=== PATIENT | female | born 1970 | race Caucasian/White ===

== ENCOUNTER 2020-11-18 11:40 | Day surgery (SDC) | payer BC ==
[2020-11-15 13:23] VITALS: BMI 30.6
[2020-11-18] MEDS ORDERED: PROPOFOL 20 ML ONE ×2 (13:01)
[2020-11-18] MEDS ORDERED: LIDOCAINE HCL/PF 2% SDV 5ML VIAL ONE (13:01)
[2020-11-18 15:50] VITALS: BP 128/71; PULSE 72; TEMP 98
== END 2020-11-18 14:05 | disposition home or self-care (01) ==
LOC: FASU-ENDO 11:40
PROVIDERS: ATTEND Internal Medicine Gastroenterology
PROC: 0DB68ZX Excision of Stomach, Via Natural or Artificial Opening Endoscopic, Diagnostic (ICD-10-PCS; 2020-11-18)
PROC: 0DB48ZX Excision of Esophagogastric Junction, Via Natural or Artificial Opening Endoscopic, Diagnostic (ICD-10-PCS; 2020-11-18)
PROC: 0DB98ZX Excision of Duodenum, Via Natural or Artificial Opening Endoscopic, Diagnostic (ICD-10-PCS; principal; 2020-11-18 13:18)
DX: K29.50 Unspecified chronic gastritis without bleeding (principal); K21.00 Gastro-esophageal reflux disease with esophagitis, without bleeding; B96.81 Helicobacter pylori [H. pylori] as the cause of diseases classified elsewhere; Z87.19 Personal history of other diseases of the digestive system
CPT/HCPCS: 82962; 88305-TC; 88342-TC

== ENCOUNTER 2021-04-21 07:38 | Day surgery (SDC) | payer BC ==
[2021-03-30 10:22] VITALS: BMI 30.2
[2021-04-21] MEDS ORDERED: LIDOCAINE HCL/PF 2% SDV 5ML VIAL ONE (07:54)
[2021-04-21] MEDS ORDERED: PROPOFOL 20 ML ONE ×4 (07:54)
[2021-04-21 08:14] VITALS: TEMP 97.3
[2021-04-21 10:41] VITALS: BP 104/71; PULSE 66
== END 2021-04-21 10:00 | disposition home or self-care (01) ==
LOC: FASU-ENDO 07:38
PROVIDERS: ATTEND Internal Medicine Gastroenterology
PROC: 0DJD8ZZ Inspection of Lower Intestinal Tract, Via Natural or Artificial Opening Endoscopic (ICD-10-PCS; principal; 2021-04-21 09:06)
DX: Z12.11 Encounter for screening for malignant neoplasm of colon (principal); K64.1 Second degree hemorrhoids; D64.9 Anemia, unspecified
CPT/HCPCS: 82962